=== PATIENT | female | born 1930 | race Caucasian/White ===

== ENCOUNTER 2019-03-22 11:34 | Inpatient (IN) ==
[2019-03-22 12:01] LABS: BASO# 0.02 X1000 (0.0-0.2); BASO% 0.1 % (0.0-0.8); EOS# 0.02 X1000 (0.0-0.7); EOS% 0.1 % (0.0-10.0); HEMATOCRIT 43.2 % (37.0-47.0); HEMOGLOBIN 14.7 g/dL (12.0-16.0); IMM GRAN# 0.05 X1000 (0.0-0.04); IMM GRAN% 0.4 % (0.0-0.5); LYMPH# 1.74 X1000 (1.2-3.4); LYMPH% 12.2 % (20.5-51.1); MCH 29.6 PG (27-31); MCV 86.9 FL (81-99); MONO# 0.78 X1000 (0.11-0.59); MONO% 5.5 % (1.7-9.3); MPV 10.4 FL (7.4-10.4); NEUT# 11.63 X1000 (1.4-6.5); NEUT% 81.7 % (42.2-75.2); PLT 245 X1000 (130-400); RBC 4.97 XMIL (4.2-5.4); RDW 13.8 % (11.5-14.5); WBC 14.24 X1000 (4.8-10.8)
[2019-03-22 12:32] LABS: CALCIUM 9.3 mg/dL (8.8-10.2); POTASSIUM 4.1 mmol/L (3.5-5.1)
[2019-03-22 12:39] LABS: INR 0.94; PROTIME 13.1 Seconds (11.0-16.0)
[2019-03-22 12:40] LABS: PTT 28.9 Seconds (22.3-41.8)
--- NOTE | 2019-03-22 12:40 | Diag Imaging Result Doc PS360 ---
EXAM: CT HEAD W/O CONTRAST HISTORY: weak TECHNIQUE: CT head without contrast. COMPARISON: None. FINDINGS: No parenchymal hemorrhage. No epidural or subdural hematoma. No subarachnoid hemorrhage. There is atrophy with chronic microvascular ischemic changes. No mass identified on this noncontrasted exam. No hydrocephalus. No sinus opacification. IMPRESSION: 1.No hemorrhage 2.Atrophy with chronic microvascular ischemic changes This exam was performed using automated exposure control, adjustment of mA or kV according to patient size, and/or use of iterative reconstruction technique. Electronically signed by Scooby Bonilla 03/22/2019 12:38 PM
--- NOTE | 2019-03-22 12:55 | Diag Imaging Result Doc PS360 ---
EXAM: CHEST-PORTABLE HISTORY: weak TECHNIQUE: Chest single view COMPARISON: 10/25/2017 FINDINGS: Poor inspiratory effort. The heart is borderline mildly prominent. Mild central vascular distention. No consolidation. No pleural effusions identified. IMPRESSION: Mildly prominent heart with mild pulmonary edema. Electronically signed by Scooby Bonilla 03/22/2019 12:53 PM
[2019-03-22 13:33] LABS: BILIRUBIN URINE NEGATIVE (NEGATIVE); BLOOD URINE 1+ (NEGATIVE); CLARITY SLIGHTLY CLOUDY (CLEAR); COLOR YELLOW; GLUCOSE URINE NEGATIVE (NEGATIVE); KETONE URINE NEGATIVE (NEGATIVE); LEUKOCYTES URINE TRACE (NEGATIVE); NITRITE URINE NEGATIVE (NEGATIVE); PROTEIN URINE NEGATIVE (NEGATIVE); URINE BACTERIA 4+ /HFP; URINE CAST NONE SEEN /LPF; URINE CRYSTAL NONE SEEN /HPF; URINE EPITHELIAL CELLS <10 /HPF (<10); URINE RBC <10 /HPF (<10); URINE SOURCE CATH; URINE YEAST NONE SEEN /HPF; UROBILINOGEN URINE NORMAL
[2019-03-22 14:37] LABS: CK INDEX 0.8 (0.0-2.5); CK-MB 3.48 ng/mL (0.0-5.0)
--- NOTE | 2019-03-22 15:03 | EKG Report ---
Test Performed on : 03/22/2019 12:04:48 PM Test Reason : numbness Blood Pressure : / mmHG Vent. Rate : 096 BPM Atrial Rate : 096 BPM P-R Int : 128 ms QRS Dur : 084 ms QT Int : 362 ms P-R-T Axes : 016 -12 048 degrees QTc Int : 457 ms Sinus rhythm. with premature atrial complexes. Possible Left atrial enlargement Left ventricular hypertrophy Cannot rule out Septal infarct , age undetermined Abnormal ECG No previous ECGs available Unconfirmed Result
[2019-03-22] MEDS ORDERED: NS 1,000 ML IV ONE (15:29)
[2019-03-22] MEDS: LEVAQUIN 500 MG in NS 100 ML IV SCH (15:47)
[2019-03-22] MEDS ORDERED: ZOFRAN IV PRN (16:00)
[2019-03-22] MEDS ORDERED: TYLENOL PO PRN (16:00)
--- NOTE | 2019-03-22 16:22 | HISTORY AND PHYSICAL ---
PRIMARY CARE PROVIDER: Dr. Neil. CHIEF COMPLAINT: Leg numbness. HISTORY OF PRESENT ILLNESS: Ms. Lanza is an 88-year-old female who carries a past medical history of hypertension, hypothyroidism, and congestive heart failure. She has frequent UTIs over the past 2 years. She was brought to the ED secondary to having bilateral lower extremity weakness and numbness. She states that she sat herself on the floor. She did not have a fall. She had an appointment with her PCP yesterday, and was set up for a neurology consult secondary to the bilateral lower extremity numbness. In the ED, she was found to have a white count of 14, and a urinalysis with 4+ bacteria. After speaking with the daughter at the bedside, she stated she has had these similar symptoms before when she has had a urinary tract infection. After treatment with antibiotics and fluids, she showed great improvement, which is where she feels that the bilateral leg numbness and weakness is coming from. She did have a head CT that does not show anything acute. She is awake, alert, and oriented, and answers all questions appropriately. She follows commands and moves all extremities. Her leg numbness is now completely resolved. She denies any headache, fever, chills, cough, or productive sputum. Per daughter, she does stay short of breath at home but does not wear any home O2. No history of COPD, but she has not been any more short of breath than her usual. No GI complaints. No complaints, but daughter reports that she does wear a Depends. We will admit her to the medical floor and initiate her on IV fluids at a low rate, given her heart failure history, she does appear to be clinically dry. We will initiate her on IV antibiotics for her urinary tract infection to see if she has improvement. Per patient and daughter reports, she has had improvement since being brought to the ER. Her leg numbness is completely resolved at this time. We will also order PT and OT in the morning. If she relapses with no improvement, we will transfer her to [facility] for specialty care. PAST MEDICAL HISTORY: 1. Hypertension. 2. Hypothyroidism. 3. Frequent UTIs over the past 2 years. PAST SURGICAL HISTORY: Denies. SOCIAL HISTORY: She lives with family. No alcohol, tobacco, or illicit drug use. She does use a walker. ALLERGIES: No known drug allergies. HOME MEDICATIONS: Have not been reconciled. REVIEW OF SYSTEMS: A 10 point review of systems is completely negative except for those as mentioned in HPI. PHYSICAL EXAMINATION: VITAL SIGNS: Temperature is 98.2 degrees, heart rate 93, respirations 16, blood pressure 172/69, and O2 was 88% on room air. She is anywhere from 95 to 98 percent on nasal cannula. She is lying on the stretcher in no acute distress. HEENT: Atraumatic, normocephalic. PERRL. NECK: Supple. Trachea midline. CARDIOVASCULAR: S1 and S2 appreciated. No murmurs, gallops, or rubs noted. RESPIRATORY: Lung sounds clear bilaterally. No increased work of breathing. GASTROINTESTINAL: Soft, nontender, and nondistended. Positive bowel sounds in 4 quadrants. EXTREMITIES: No clubbing. No cyanosis. Bilateral pedal pulses were palpable. NEUROLOGIC: Patient is sitting up in the bed, awake, alert, and oriented to name, date of , year and place. All numbness has subsided in her legs. She is able to move them in all directions with ease. No other focal deficits. DIAGNOSTIC DATA: Head CT shows no hemorrhage, atrophy with chronic microvascular ischemic changes. Chest x-ray mildly prominent heart with mild pulmonary edema. EKG sinus rhythm with PACs at 96 beats per minute. LABORATORY DATA: White count 14, hemoglobin and hematocrit 14 and 43, platelet count is 245,000. Sodium 138, potassium 4.1, BUN 16, creatinine 1.0. Blood glucose was 114, CK 242. Troponin less than 0.010. Plasma lactate 1.1. Urinalysis 4+ bacteria, 10 to 20 microscopic WBCs, trace WBCs, and 1+ blood. ASSESSMENT AND PLAN: 1. Urinary tract infection. In the past they have grown out E. Coli, susceptible to Levaquin. We will initiate IV Levaquin and low rate IV fluids. 2. Complaints of bilateral lower extremity weakness and numbness that has resolved since coming to the ER with her daughter at bedside. This has happened to her in the past with UTIs. She did follow up with her PCP yesterday, and has a consult to see a neurologist. If her symptoms return and do not improve, we will transfer her to [facility] for specialty care with Neurology. We will consult PT and OT, fall precautions and Neuro checks. 3. Hypertension. Continue home medications when reconciled. 4. Hypothyroidism. Will continue Synthroid when reconciled. 5. Further recommendations to follow physician evaluation, laboratory and diagnostic data. Dictated by ESTEFANIA Desir for Chris Hess MD cc: MD Yulia Rice CRNP [facility]
[2019-03-22] MEDS: XALATAN 0.005% OPH SOLN BOTH EYES SCH (20:14)
--- NOTE | 2019-03-22 22:01 | HISTORY AND PHYSICAL ---
ADDENDUM: Patient seen and examined by myself. Full note dictated and discussed with nurse practitioner. Patient presented to the hospital with bilateral lower extremity weakness and numbness. She has done this before with a UTI. It does appears as though she has UTI currently. Currently, she is awake, alert. She is in no distress. We will admit her to the hospital. We will place her on antibiotics, IV fluids and we will follow. cc: Chris Hess MD
[2019-03-23] MEDS: SYNTHROID PO SCH (06:10)
[2019-03-23] MEDS: PRILOSEC PO SCH (06:10)
[2019-03-23 06:56] LABS: BASO# 0.02 X1000 (0.0-0.2); BASO% 0.2 % (0.0-0.8); EOS# 0.09 X1000 (0.0-0.7); EOS% 0.8 % (0.0-10.0); HEMATOCRIT 38.3 % (37.0-47.0); HEMOGLOBIN 12.4 g/dL (12.0-16.0); IMM GRAN# 0.01 X1000 (0.0-0.04); IMM GRAN% 0.1 % (0.0-0.5); LYMPH# 1.81 X1000 (1.2-3.4); LYMPH% 16.9 % (20.5-51.1); MCHC 32.4 g/dL (33-37); MCV 89.7 FL (81-99); MONO# 0.67 X1000 (0.11-0.59); MONO% 6.3 % (1.7-9.3); MPV 10.4 FL (7.4-10.4); NEUT# 8.12 X1000 (1.4-6.5); NEUT% 75.7 % (42.2-75.2); PLT 174 X1000 (130-400); RBC 4.27 XMIL (4.2-5.4); RDW 13.8 % (11.5-14.5); WBC 10.72 X1000 (4.8-10.8)
[2019-03-23 07:16] LABS: ALBUMIN 3.2 g/dL (3.5-5.0); CALCIUM 8.5 mg/dL (8.8-10.2); TOTAL BILIRUBIN 0.8 mg/dL (0.20-1.00); TOTAL PROTEIN 6.9 g/dL (6.3-8.3)
[2019-03-23 07:41] LABS: TSH 2.38 uIUmL (0.27-4.20)
[2019-03-23 07:45] LABS: CK INDEX 0.9 (0.0-2.5); CK-MB 3.05 ng/mL (0.0-5.0)
[2019-03-23] MEDS: IMDUR PO SCH (08:48)
[2019-03-23] MEDS: MYRBETRIQ E.R. PO SCH (08:48)
[2019-03-23] MEDS: LEVAQUIN 500 MG in NS 100 ML IV SCH (15:24)
[2019-03-23] MEDS: COZAAR PO SCH (15:25)
--- NOTE | 2019-03-23 20:07 | PROGRESS NOTE ---
DATE: 03/23/2019 SUBJECTIVE: The patient notes that she is feeling much better. Denies any current issues. Notes that her cough is improving. Notes that her lower extremity weakness is improving, but has not been out of bed currently. OBJECTIVE: Temperature 98.2 degrees, pulse 71, respiratory 18, BP 150/44.General: The patient is very pleasant. She is in no distress. HEENT: Normocephalic. Neck supple. CV: Regular rate. Chest clear. Abdomen soft. Extremities: Moves all extremities. ASSESSMENT: 1. Urinary tract infection. 2. Generalized weakness secondary to her urinary tract infection. 3. Hypertension. 4. Hypothyroidism. 5. Leukocytosis, improving. PLAN: We will continue the patient in the hospital. Continue antibiotics until culture and sensitivity return. Further orders as needed. cc: Chris Hess MD
[2019-03-23] MEDS: XALATAN 0.005% OPH SOLN BOTH EYES SCH (20:47)
[2019-03-24] MEDS: SYNTHROID PO SCH (06:19)
[2019-03-24] MEDS: PRILOSEC PO SCH (06:19)
[2019-03-24] MEDS: ZOSYN 3.375 GM in NS 50 ML IV SCH ×3 (09:13→20:06)
[2019-03-24] MEDS: IMDUR PO SCH (09:13)
[2019-03-24] MEDS: MYRBETRIQ E.R. PO SCH (09:13)
[2019-03-24] MEDS: COZAAR PO SCH (09:13)
[2019-03-24] MEDS ORDERED: LEVAQUIN 500 MG/D5W 500 MG/100 ML IVPB IV SCH (16:00)
[2019-03-24] MEDS: XALATAN 0.005% OPH SOLN BOTH EYES SCH (20:06)
--- NOTE | 2019-03-24 21:53 | PROGRESS NOTE ---
DATE: 03/24/2019 SUBJECTIVE: The patient notes that overall she is feeling okay. She denies any fevers or chills. Denies any new symptoms although states she really has not been out of bed since getting to the hospital. PHYSICAL EXAMINATION: Vital Signs: Temperature 98 degrees, pulse 79, respiratory 18, BP 127/44. General: Patient is awake, very pleasant. She is in no respiratory distress. Neck: Supple. Cardiovascular: Regular rate. Chest: Clear. Abdomen: Soft. Extremities: Moves all extremities. ASSESSMENT: 1. Generalized weakness. 2. Escherichia coli urinary tract infection. 3. Leukocytosis, resolved. 4. Hypertension. 5. Hypothyroidism. PLAN: We will continue patient in the hospital. We will change her antibiotic as her E coli is resistant to Levaquin. We will place her on Zosyn IV. We will continue physical therapy and we will follow. Hopefully home over the next 1 or 2 days. cc: Chris Hess MD
[2019-03-25] MEDS: ZOSYN 3.375 GM in NS 50 ML IV SCH ×4 (02:09→21:24)
[2019-03-25] MEDS: SYNTHROID PO SCH (06:11)
[2019-03-25] MEDS: PRILOSEC PO SCH (06:11)
[2019-03-25] MEDS: MYRBETRIQ E.R. PO SCH (10:01)
[2019-03-25] MEDS: COZAAR PO SCH (10:01)
[2019-03-25] MEDS: IMDUR PO SCH (10:01)
--- NOTE | 2019-03-25 19:45 | PROGRESS NOTE ---
DATE: 03/25/2019 SUBJECTIVE: Patient notes that she is starting to feel better, feeling a little bit stronger. Still very weak, has to have help to get out of bed. Denies any fevers or chills. PHYSICAL EXAMINATION: Vital Signs: Temp 99, pulse 84, respiratory 18, BP 144/51. General: Patient is very pleasant. She is in no respiratory distress. HEENT: Normocephalic. Neck: Supple. Cardiovascular: Regular rate. No murmurs. Chest: Clear, nonlabored. Abdomen: Soft. Extremities: Moves all extremities except for generalized weakness. ASSESSMENT: 1. E coli urinary tract infection. Currently is on Zosyn. Is resistant to Levaquin. 2. Leukocytosis, resolved. 3. Adult generalized weakness with adult failure to thrive. 4. Hypertension. 5. Hypothyroidism. PLAN: We will continue patient in the hospital. We will continue physical therapy when it is made available. Hopefully, she can discharge home over the next few days. cc: Chris Hess MD
[2019-03-25] MEDS: XALATAN 0.005% OPH SOLN BOTH EYES SCH (21:24)
[2019-03-26] MEDS: ZOSYN 3.375 GM in NS 50 ML IV SCH ×2 (03:30→08:15)
[2019-03-26] MEDS: SYNTHROID PO SCH (06:19)
[2019-03-26] MEDS: PRILOSEC PO SCH (06:19)
[2019-03-26] MEDS: COZAAR PO SCH (08:15)
[2019-03-26] MEDS: MYRBETRIQ E.R. PO SCH (08:15)
[2019-03-26] MEDS: IMDUR PO SCH (08:15)
[2019-03-26] MEDS ORDERED: CYANOCOBALAMIN IM ONE ×2 (12:20→14:00)
--- NOTE | 2019-03-26 13:02 | PROGRESS NOTE ---
DATE: 03/26/2019 SUBJECTIVE: Patient has no major complaints. She is sitting up in bed eating lunch. OBJECTIVE: Vitals: Blood pressure 190/84, heart rate of 81, respiratory rate of 18, temperature 97.3 degrees, 96% on 2 L. Cardiovascular: Regular rate and rhythm. Pulmonary: Bilateral breath sounds, clear to auscultation. GI: Soft, nontender, nondistended. Bowel sounds are positive. PROBLEM LIST: 1. Escherichia coli urinary tract infection. She is currently on Zosyn. It is resistant to Levaquin, but it is sensitive to cefazolin, so I am just going to switch her to Keflex. 2. Weakness. We will continue to monitor. 3. Hypertension does not appear to be well controlled, although generally speaking it has been okay. She had one very high level before, so we will continue to monitor before we will bump up her medications. 4. Generalized weakness. We will continue PT. Plan for rehab transfer tomorrow if stable. Continue to monitor. I would continue her Keflex for another 7 days at discharge. cc: Jack Warren MD
[2019-03-26] MEDS: KEFLEX PO SCH (20:16)
[2019-03-26] MEDS: XALATAN 0.005% OPH SOLN BOTH EYES SCH (20:16)
[2019-03-26] MEDS ORDERED: LIPITOR PO SCH (21:00)
[2019-03-27] MEDS: PRILOSEC PO SCH (06:10)
[2019-03-27] MEDS: SYNTHROID PO SCH (06:11)
--- NOTE | 2019-03-27 08:24 | PROVIDER DOCUMENTATION ---
This chart was entered by Jannette Sierra Scribe, acting as scribe for Cem Prado MD. HPI-General Adult - General Chief Complaint: Numbness Stated Complaint: Leg Nubness Time Seen by Provider: 03/22/19 11:39 Source: patient, family, EMS Allergies/Adverse Reactions: Patient Allergies Allergy/AdvReac Type Severity Reaction Status Date / Time No Known Allergies Allergy Verified 03/22/19 12:04 Home Medications: Home Medication List Medication Instructions Recorded Confirmed Last Taken Type Isosorbide Mononitrate E.r. [Imdur] 30 mg PO DAILY 11/29/16 03/22/19 03/21/19 09:00 History Levothyroxine [Synthroid] 0.075 mg PO DAILY 11/29/16 03/22/19 03/21/19 09:00 History Omeprazole [Prilosec] 20 mg PO DAILY@0700 11/29/16 03/22/19 03/21/19 09:00 History Calcium 500 mg PO DAILY 11/05/17 03/22/19 03/21/19 09:00 History Mirabegron E.r. [Myrbetriq E.r] 25 mg PO DAILY 11/05/17 03/22/19 03/21/19 09:00 History ATORVAstatin [Lipitor] 1 cap PO DAILY 03/22/19 03/22/19 03/21/19 09:00 History Furosemide [Lasix] 1 cap PO BID PRN 03/22/19 03/22/19 03/22/19 09:00 History Latanoprost 0.005% Oph Soln 1 drp BOTH EYES HS 03/22/19 03/22/19 03/21/19 21:00 History [Xalatan 0.005% Oph Soln] Losartan [Cozaar] 2 cap PO DAILY 03/22/19 03/22/19 03/22/19 History CephALEXIN [Keflex] 500 mg PO Q12HR #14 cap 03/26/19 Unknown Rx Cyanocobalamin [Vitamin B-12] 1,000 microgm PO DAILY tab 03/26/19 Unknown Rx - History of Present Illness -Gen Adult Nature of Presenting Problems: 88 y/o female presents to ED with leg numbness onset 3 days ago. Pt reports she saw PCP yesterday and got a neurology referral for the numbness. Pt states her legs were so numb this morning that she thought she was going to fall down. Pt is alert and oriented. Location of Pain/Injury: reports: lower extremity Pain Radiation: reports: no radiation Quality of Pain: reports: none Severity: reports: mild Onset/Duration: reports: 3 days ago Timing: reports: still present Context/Activities at Onset: reports: none Modifying Factors: improves with: nothing Associated Symptoms: reports: other (leg numbness) Similar Symptoms Previously?: No Recently seen or treated by another doctor?: No Review of Systems - Adult - REVIEW OF SYSTEMS - ADULT Constitutional: denies: chills, fever Eyes: reports: no symptoms reported Ears, Nose, Mouth & Throat: reports: no symptoms reported Cardiovascular: denies: chest pain, palpitations Respiratory: denies: cough, shortness of breath Gastrointestinal: denies: abdominal pain, diarrhea, nausea, vomiting Genitourinary: reports: no symptoms reported Musculoskeletal: denies: back pain, joint pain Integumentary: reports: no symptoms reported Neurological: reports: numbness (legs). denies: dizziness/vertigo, seizure Psychiatric: reports: no symptoms reported Endocrine: reports: no symptoms reported Hematologic/Lymphatic: reports: no symptoms reported Allergic/Immunologic: reports: no symptoms reported All Other Systems: Reviewed and Negative Past History - Adult - PAST MEDICAL HISTORY-ADULT Review of Records: reports: Old Records Reviewed, Nursing Assessment Review, Medications Reviewed Major Childhood Illnesses: reports: denies history Cardiovascular: reports: HTN Respiratory: reports: denies history Gastrointestinal: reports: GERD Obstetrical/Gynecological: reports: denies history Genitourinary: reports: denies history Musculoskeletal: reports: denies history Neurological: reports: denies history Endocrine/Immune: reports: Diabetes, thyroid disorder (hypothyroid) Other Conditions: reports: denies history, cataract/glaucoma - PRIOR SURGERIES/PROCEDURES Surgical/Procedure History: reports: hysterectomy, other (cataract removal) - IMMUNIZATION STATUS Childhood Immunizations: See Nurse Assessment Flu Vaccine: See Nurse Assessment - FAMILY HISTORY Family History: reviewed, not pertinent - SOCIAL HISTORY Smoking: quit greater than 1 year Substance Use: none/never Alcohol Use Frequency: never Living Situation: family Physical Exam-General - PHYSICAL EXAM-ADULT Initial Vital Signs Reviewed: Yes - CONSTITUTIONAL General Appearance: appears well, alert, no apparent distress - EYES Eyes: PERRL/EOMI, pink conjunctivae - HEAD, EARS, NOSE, MOUTH & THROAT HENMT: normocephalic/atraumatic, moist mucous membranes, normal ENT inspection - NECK Neck: non-tender, full range of motion - RESPIRATORY Respiratory: chest non-tender, lungs clear, normal breath sounds - CARDIOVASCULAR Cardiovascular: normal peripheral pulses, regular rate, rhythm - GASTROINTESTINAL (ABDOMEN) Abdominal Exam: normal bowel sounds, non tender, soft - MUSCULOSKELETAL Back Exam: normal inspection, no CVA tenderness Extremity: normal range of motion, non-tender, normal gait, other (bilateral patellar DTR 1+) - SKIN Integumentary: normal color, warm/dry - NEUROLOGIC Neurologic: 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 negative: sensory deficit, other (clonus) - PSYCHIATRIC Psych/Mental Status: normal mood/affect, normal thought content, normal thought process Progress - PLAN OF CARE/RESULTS Progress/Plan/Lab Results: Vital Signs - 8 hr 03/22/19 11:34 Temperature 98.2 F Pulse Rate 93 H Respiratory Rate 16 Blood Pressure 172/69 O2 Sat by Pulse Oximetry 88 L Orders Category Date Time Status Nursing- Obtain EKG once Care 03/22/19 11:49 Active CHEST-PORTABLE [RAD] Stat Exams 03/22/19 11:[address] HEAD W/O CONTRAST [CT] Stat Exams 03/22/19 11:46 Ordered BMP [BASIC METABOLIC PANEL] [CHEM] Stat Lab 03/22/19 11:50 Ordered CBC WITH ELECTRONIC DIFF [HEME] Stat Lab 03/22/19 11:50 Ordered PROTIME WITH INR [COAG] Stat Lab 03/22/19 11:50 Ordered PTT [COAG] Stat Lab 03/22/19 11:46 Uncollected TROPONIN T Stat Lab 03/22/19 11:[address] W/POSS RFLX CULT [URINALYSIS] Stat Lab 03/22/19 11:46 Uncollected Laboratory Tests 03/22/19 03/22/19 03/22/19 11:50 11:50 11:50 WBC 14.24 H RBC 4.97 Hgb 14.7 Hct 43.2 MCV 86.9 MCH 29.6 MCHC 34.0 RDW Std Deviation 13.8 Plt Count 245 MPV 10.4 Immature Gran % (Auto) 0.4 Neut % (Auto) 81.7 H Lymph % (Auto) 12.2 L [place] % (Auto) 5.5 Eos % (Auto) 0.1 Baso % (Auto) 0.1 Immature Gran # (Auto) 0.05 H Neut # (Auto) 11.63 H Lymph # (Auto) 1.74 [place] # (Auto) 0.78 H Eos # (Auto) 0.02 Baso # (Auto) 0.02 PT 13.1 INR 0.94 PTT (Actin FS) 28.9 Sodium 138 Potassium 4.1 Chloride 97 L Carbon Dioxide 28 Anion Gap 13 BUN 16 Creatinine 1.0 H Estimated GFR/1.73 m2 53 BUN/Creatinine Ratio 16 Glucose 114 H Calculated Osmolality 278 Calcium 9.3 Creatine Kinase Troponin T Plasma Lactate Urine Source Urine Color Urine Clarity Urine pH Ur Specific [place] Urine Protein Urine Ketones Urine Blood Urine Nitrite Urine Bilirubin Urine Urobilinogen Urine Microscopic RBC Urine WBC Urine Microscopic WBC Ur Epithelial Cells Urine Crystals Urine Bacteria Urine Casts Urine Yeast Urine Glucose 03/22/19 03/22/19 03/22/19 11:50 12:48 12:48 WBC RBC Hgb Hct MCV MCH MCHC RDW Std Deviation Plt Count MPV Immature Gran % (Auto) Neut % (Auto) Lymph % (Auto) [place] % (Auto) Eos % (Auto) Baso % (Auto) Immature Gran # (Auto) Neut # (Auto) Lymph # (Auto) [place] # (Auto) Eos # (Auto) Baso # (Auto) PT INR PTT (Actin FS) Sodium Potassium Chloride Carbon Dioxide Anion Gap BUN Creatinine Estimated GFR/1.73 m2 BUN/Creatinine Ratio Glucose Calculated Osmolality Calcium Creatine Kinase 424 H Troponin T < 0.010 Plasma Lactate 1.1 Urine Source Urine Color Urine Clarity Urine pH Ur Specific [place] Urine Protein Urine Ketones Urine Blood Urine Nitrite Urine Bilirubin Urine Urobilinogen Urine Microscopic RBC Urine WBC Urine Microscopic WBC Ur Epithelial Cells Urine Crystals Urine Bacteria Urine Casts Urine Yeast Urine Glucose 03/22/19 12:48 WBC RBC Hgb Hct MCV MCH MCHC RDW Std Deviation Plt Count MPV Immature Gran % (Auto) Neut % (Auto) Lymph % (Auto) [place] % (Auto) Eos % (Auto) Baso % (Auto) Immature Gran # (Auto) Neut # (Auto) Lymph # (Auto) [place] # (Auto) Eos # (Auto) Baso # (Auto) PT INR PTT (Actin FS) Sodium Potassium Chloride Carbon Dioxide Anion Gap BUN Creatinine Estimated GFR/1.73 m2 BUN/Creatinine Ratio Glucose Calculated Osmolality Calcium Creatine Kinase Troponin T Plasma Lactate Urine Source CATH Urine Color YELLOW Urine Clarity SLIGHTLY CLOUDY A Urine pH 7.0 Ur Specific [place] 1.000 Urine Protein NEGATIVE Urine Ketones NEGATIVE Urine Blood 1+ A Urine Nitrite NEGATIVE Urine Bilirubin NEGATIVE Urine Urobilinogen NORMAL Urine Microscopic RBC <10 Urine WBC TRACE A Urine Microscopic WBC 10-20 A Ur Epithelial Cells <10 Urine Crystals NONE SEEN Urine Bacteria 4+ Urine Casts NONE SEEN Urine Yeast NONE SEEN Urine Glucose NEGATIVE Result Diagrams: 03/23/19 05:50 03/23/19 05:50 - EKG 1 Time of EKG reading by physician:: 12:04 EKG Read and Signed by:: Cem Prado EKG Interpretation (*Must complete 3 of following elements*): Abnormal Rate: 96 Rhythm: Sinus w/ premature atrial complexes [place]: normal QRS: LVH, other (possible L atrial enlargement; cannot rule out septal infarct) MA Interval: normal ST Wave: normal - XRAY 1 XRAY Study: Chest Impression: Abnormal (FINDINGS: Poor inspiratory effort. The heart is borderline mildly prominent. Mild central vascular distention. No consolidation. No pleural effusions identified. IMPRESSION: Mildly prominent heart with mild pulmonary edema. Electronically signed by Scooby Bonilla 03/22/2019 12:53 PM) - CT/MRI 1 CT Study: Head Impression: Normal (FINDINGS: No parenchymal hemorrhage. No epidural or subdural hematoma. No subarachnoid hemorrhage. There is atrophy with chronic microvascular ischemic changes. No mass identified on this noncontrasted exam. No hydrocephalus. No sinus opacification. IMPRESSION: 1.No hemorrhage 2.Atrophy with chronic microvascular ischemic changes This exam was performed using automated exposure control, adjustment of mA or kV according to patient size, and/or use of iterative reconstruction technique. Electronically signed by Scooby Bonilla 03/22/2019 12:38 PM) - CONSULTS/PCP/HOSPITALIST Notification #1 *Consult/PCP/Hospitalist*: Dr. Hess Time Discussed: 14:21 Reason/Comments: Weakness Consult Disposition: Admit Departure - Departure Date of Disposition Decision: 03/22/19 Time of Disposition Decision: 14:23 DIAGNOSIS: Weakness Disposition: ADMITTED INPATIENT 09 Certified Medical Emergency: Emergent Condition: Stable - Critical Care Note This patient required my direct & personal management of CC.: No Attestation - Physician/ YUE Attestation Patient care was provided by Advanced Practice Provider:: No The physician spent face to face time with patient:: Yes Advanced Practice Provider documentation review:: Supervising physician onsite and consulted in the evaluation and care of this patient. The physician did have a face to face encounter with the patient. This chart was documented by the indicated scribe, (Jannette Sierar Scribe) and accurately reflects the services I performed and decisions made by me, Cem Prado MD, as attested by the provider's signature.
[2019-03-27] MEDS ORDERED: VITAMIN B-12 PO SCH (09:00)
[2019-03-27] MEDS ORDERED: TUMS PO SCH (09:00)
[2019-03-27] MEDS: MYRBETRIQ E.R. PO SCH (09:57)
[2019-03-27] MEDS: IMDUR PO SCH (09:57)
[2019-03-27] MEDS: COZAAR PO SCH (09:57)
[2019-03-27] MEDS: KEFLEX PO SCH (09:57)
--- NOTE | 2019-03-27 13:10 | DISCHARGE SUMMARY ---
ADMISSION DATE: 03/23/2019 DISCHARGE DATE: 03/27/2019 DISCHARGE DIAGNOSES: 1. Escherichia coli urinary tract infection. 2. Weakness. 3. Hypertension. 4. Hypothyroidism. BRIEF HISTORY: An 88-year-old female history of hypertension, CHF with falls and numbness. She had a white count of 14,000, 4+ bacteria, felt to have UTI. She was somewhat dehydrated on admission. She has had E coli UTIs in the past. They have been susceptible to Levaquin. She had bilateral lower extremity weakness and numbness. She had PT and OT provided. Her micro here showed an E coli that was sensitive to everything but Levaquin for which I think she had been placed on Zosyn. She did progress a little bit with physical therapy. It was not an ESBL, though. It was only resistant to Levaquin. VITAL SIGNS: She was afebrile. Day of discharge: Blood pressure 140/67, heart rate 73, felt stable for discharge. DISCHARGE MEDICATIONS: Calcium 500 daily, Cozaar 100 daily, Imdur 30 daily, Lasix 20 p.r.n., Lipitor 10 daily, Myrbetriq 25 daily, Prilosec 20 daily, Synthroid 75 mcg daily, latanoprost 0.005% 2-1/2 drops both eyes, Keflex 500 q.12 for 7 days, vitamin B12 1000 mcg daily. Her B12 level was low. We did give her a dose of that. It was 170. Folate, TSH were normal. DISCHARGE CONDITION: Discharge condition is stable. She is going to follow up for rehab at discharge. cc: MD Dao Luque MD
[2019-03-27 16:04] VITALS: BP 143/57
== END 2019-03-27 16:54 | DRG 690 ==
LOC: P.MEDSURG 11:34 → P.ED 11:34 → SUATTDRO 03-23 13:13
PROVIDERS: ATTEND Internal Medicine
CPT/HCPCS: 70450; 71010; 71045; 80048; 80053; 81001; 82550; 82553; 82607; 82746; 83605; 84443; 84484; 85025; 85610; 85730; 87040; 87077; 87088; 87186; 93005; 94761; 96374; 97163; 97166; 97530; 97535; 99285; A9270; J1956; J2543; J3420; J7030

== ENCOUNTER 2019-06-15 11:43 | Inpatient (IN) ==
--- NOTE | 2019-06-15 12:08 | EKG Report ---
Test Performed on : 06/15/2019 12:00:52 PM Test Reason : SYNCOPE Blood Pressure : / mmHG Vent. Rate : 064 BPM Atrial Rate : 064 BPM P-R Int : 122 ms QRS Dur : 088 ms QT Int : 424 ms P-R-T Axes : 020 -05 021 degrees QTc Int : 437 ms Normal sinus rhythm. Normal ECG When compared with ECG of 09-JUN-2019 15:53, (Unconfirmed) Criteria for Septal infarct are no longer present Unconfirmed Result
[2019-06-15 12:43] LABS: BASO# 0.03 X1000 (0.0-0.2); BASO% 0.5 % (0.0-0.8); EOS# 0.17 X1000 (0.0-0.7); EOS% 2.6 % (0.0-10.0); HEMATOCRIT 41.6 % (37.0-47.0); HEMOGLOBIN 13.8 g/dL (12.0-16.0); IMM GRAN# 0.02 X1000 (0.0-0.04); IMM GRAN% 0.3 % (0.0-0.5); LYMPH# 2.45 X1000 (1.2-3.4); MCH 29.4 PG (27-31); MCHC 33.2 g/dL (33-37); MCV 88.5 FL (81-99); MONO# 0.56 X1000 (0.11-0.59); MONO% 8.7 % (1.7-9.3); MPV 10.3 FL (7.4-10.4); NEUT# 3.21 X1000 (1.4-6.5); NEUT% 49.9 % (42.2-75.2); PLT 211 X1000 (130-400); RDW 13.5 % (11.5-14.5); WBC 6.44 X1000 (4.8-10.8)
--- NOTE | 2019-06-15 12:56 | Diag Imaging Result Doc PS360 ---
EXAM: CHEST-2 VIEWS HISTORY: SYNCOPE TECHNIQUE: AP and Lateral chest x-ray COMPARISON: 06/09/2019, 11/04/2017 FINDINGS: Poor inspiration. There is cardiomegaly and vascular congestion. Interstitial edema versus fibrosis. No focal consolidation. No effusions.. No change from previous studies. IMPRESSION: Unchanged cardiomegaly with mild vascular congestion and interstitial prominence.. Electronically signed by Larissa Iverson 06/15/2019 12:53 PM
[2019-06-15 13:05] LABS: ALBUMIN 4.1 g/dL (3.5-5.0); CALCIUM 9.5 mg/dL (8.8-10.2); CREATININE 1.3 mg/dL (0.5-0.9); POTASSIUM 5.1 mmol/L (3.5-5.1); TOTAL BILIRUBIN 0.3 mg/dL (0.20-1.00); TOTAL PROTEIN 7.8 g/dL (6.3-8.3)
[2019-06-15 13:12] LABS: INR 0.89; PROTIME 12.5 Seconds (11.0-16.0)
[2019-06-15 13:13] LABS: PTT 26.8 Seconds (22.3-41.8)
--- NOTE | 2019-06-15 14:16 | PROVIDER DOCUMENTATION ---
This chart was entered by Latoya Pate Scribe, acting as scribe for Yimi Contreras MD. HPI-General Adult - General Chief Complaint: Return/Recheck Stated Complaint: near syncope Time Seen by Provider: 06/15/19 12:00 Source: patient, family (son), EMS Allergies/Adverse Reactions: Patient Allergies Allergy/AdvReac Type Severity Reaction Status Date / Time No Known Allergies Allergy Verified 03/22/19 12:04 Home Medications: Home Medication List Medication Instructions Recorded Confirmed Last Taken Type Isosorbide Mononitrate E.r. [Imdur] 30 mg PO DAILY 11/29/16 03/22/19 03/21/19 09:00 History Levothyroxine [Synthroid] 0.075 mg PO DAILY 11/29/16 03/22/19 03/21/19 09:00 History Omeprazole [Prilosec] 20 mg PO DAILY@0700 11/29/16 03/22/19 03/21/19 09:00 History Calcium 500 mg PO DAILY 11/05/17 03/22/19 03/21/19 09:00 History Mirabegron E.r. [Myrbetriq E.r] 25 mg PO DAILY 11/05/17 03/22/19 03/21/19 09:00 History ATORVAstatin [Lipitor] 1 cap PO DAILY 03/22/19 03/22/19 03/21/19 09:00 History Furosemide [Lasix] 1 cap PO BID PRN 03/22/19 03/22/19 03/22/19 09:00 History Latanoprost 0.005% Oph Soln 1 drp BOTH EYES HS 03/22/19 03/22/19 03/21/19 21:00 History [Xalatan 0.005% Oph Soln] Losartan [Cozaar] 2 cap PO DAILY 03/22/19 03/22/19 03/22/19 History CephALEXIN [Keflex] 500 mg PO Q12HR #14 cap 03/26/19 Unknown Rx Cyanocobalamin [Vitamin B-12] 1,000 microgm PO DAILY tab 03/26/19 Unknown Rx - History of Present Illness -Gen Adult Nature of Presenting Problems: [id number] presents to ED cc weakness and syncope. Son is at bedside and reports pt was in her wheelchair doing her PT exercises when she just passed out for about 10 minutes. EMS reports pt was in and out in route to hospital and b/p dropped to 80/50. Upon exam pt has no memory of EMS ride. Pt was seen in ED on 06/09/19 for similar symptoms. Pt denies pain. Pt has hx of HTN and DM. Location of Pain/Injury: reports: none Onset/Duration: reports: just prior to arrival Timing: reports: improving Context/Activities at Onset: reports: moderate activity Modifying Factors: improves with: nothing Associated Symptoms: reports: dizziness, syncope Similar Symptoms Previously?: Yes Recently seen or treated by another doctor?: Yes (06/09/19) Review of Systems - Adult - REVIEW OF SYSTEMS - ADULT Constitutional: reports: see antonio TALAMANTES. denies: chills, fever Eyes: reports: no symptoms reported Ears, Nose, Mouth & Throat: reports: no symptoms reported Cardiovascular: reports: see HPI. denies: chest pain, palpitations Respiratory: reports: no symptoms reported Gastrointestinal: reports: no symptoms reported Genitourinary: reports: no symptoms reported Musculoskeletal: reports: no symptoms reported Integumentary: reports: no symptoms reported Neurological: reports: see HPI, syncope Psychiatric: reports: no symptoms reported Endocrine: reports: no symptoms reported Hematologic/Lymphatic: reports: no symptoms reported Allergic/Immunologic: reports: no symptoms reported All Other Systems: Reviewed and Negative Past History - Adult - PAST MEDICAL HISTORY-ADULT Review of Records: reports: Nursing Assessment Review, Medications Reviewed, Social history reviewed & non-contributory. Major Childhood Illnesses: reports: denies history Cardiovascular: reports: HTN Respiratory: reports: denies history Gastrointestinal: reports: GERD Obstetrical/Gynecological: reports: denies history Genitourinary: reports: denies history Musculoskeletal: reports: denies history Neurological: reports: denies history Endocrine/Immune: reports: Diabetes, thyroid disorder (hypothyroid) Other Conditions: reports: cataract/glaucoma - PRIOR SURGERIES/PROCEDURES Surgical/Procedure History: reports: hysterectomy, other (cataract removal) - IMMUNIZATION STATUS Childhood Immunizations: See Nurse Assessment Flu Vaccine: See Nurse Assessment - FAMILY HISTORY Family History: reviewed, not pertinent - SOCIAL HISTORY Smoking: denies Physical Exam-General - PHYSICAL EXAM-ADULT Initial Vital Signs Reviewed: Yes - CONSTITUTIONAL General Appearance: appears well, alert, no apparent distress. negative: anxious, combative - EYES Eyes: PERRL/EOMI, pink conjunctivae. negative: meningismus, pale conjunctivae, photophobia - HEAD, EARS, NOSE, MOUTH & THROAT HENMT: normocephalic/atraumatic, moist mucous membranes, normal ENT inspection. negative: angioedema, dental decay, hearing deficit - NECK Neck: non-tender, full range of motion, supple, normal inspection. negative: C- spine tenderness - RESPIRATORY Respiratory: chest non-tender, lungs clear, normal breath sounds, no pleuratic chest pain, no respiratory distress, no accessory muscle use. negative: crackles, rales, rhonchi, stridor, wheezing - CARDIOVASCULAR Cardiovascular: normal peripheral pulses, regular rate, rhythm, no edema, no gallop, no JVD, no murmur. negative: bradycardia, tachycardia - GASTROINTESTINAL (ABDOMEN) Abdominal Exam: normal bowel sounds, non tender, soft, no organomegaly, no pulsatile mass. negative: distended, guarding, rigid, rebound, tenderness, h ernia, mass - LYMPHATIC Lymphatic: no adenopathy. negative: enlargement, striations, streaking - MUSCULOSKELETAL Back Exam: normal inspection, no CVA tenderness, no vertebral tenderness. negative: ecchymosis, swelling Extremity: normal inspection, no pedal edema, no calf tenderness, normal capillary refill, pelvis stable. negative: erythema - SKIN Integumentary: normal color, normal turgor, warm/dry. 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 negative: facial droop, focal weakness, motor weakness, sensory deficit - PSYCHIATRIC Psych/Mental Status: normal mood/affect, normal thought content, normal thought process, oriented x 3. negative: disoriented x 3, anxious, disheveled, depressed affect Progress - PLAN OF CARE/RESULTS Progress/Plan/Lab Results: Vital Signs - 8 hr 06/15/19 11:50 Temperature 98.2 F Pulse Rate 68 Respiratory Rate 18 Blood Pressure 141/65 O2 Sat by Pulse Oximetry 94 L Laboratory Results - last 24 hr 06/15/19 11:57 POC Glucose 127 H Orders Category Date Time Status Cardiac Monitoring DIRECTED Care 06/15/19 11:57 Active Oxygen Therapy- ED Nursing DIRECTED Care 06/15/19 11:57 Active Saline Loc NOW Care 06/15/19 11:57 Active CHEST-2 VIEWS [RAD] Stat Exams 06/15/19 11:57 Ordered CBC WITH ELECTRONIC DIFF [HEME] Stat Lab 06/15/19 12:03 Ordered CK PROFILE [SP CHEM] Stat Lab 06/15/19 12:03 Ordered COMPREHENSIVE METABOLIC PANEL [CHEM] Stat Lab 06/15/19 12:03 Ordered PRO B-NATRIURETIC PEPTIDE Stat Lab 06/15/19 12:03 Ordered PROTIME WITH INR [COAG] Stat Lab 06/15/19 12:03 Ordered PTT [COAG] Stat Lab 06/15/19 12:03 Ordered TROPONIN T Stat Lab 06/15/19 12:03 Ordered CP/SOB/Palp >45 yrs of Age Stat Oth 06/15/19 11:57 Ordered EKG [EKG] Stat Ther 06/15/19 11:57 Draft Result Diagrams: 06/15/19 12:25 06/15/19 12:25 - EKG 1 Time of EKG reading by physician:: 12:00 EKG Read and Signed by:: Yimi Contreras EKG Interpretation (*Must complete 3 of following elements*): Normal Rate: 64 Rhythm: normal sinus QRS: normal TN Interval: normal - XRAY 1 XRAY: Bilateral XRAY Study: Chest Impression: See EMR Report (IMPRESSION: Unchanged cardiomegaly with mild vascular congestion and interstitial prominence.. Electronically signed by Larissa Iverson 06/15/2019 12:53 PM 06/15/19 1253) - CONSULTS/PCP/HOSPITALIST Notification #1 *Consult/PCP/Hospitalist*: Dr. Henning Time Discussed: 13:07 Consult Disposition: Admit (will admit pt) Departure - Departure Date of Disposition Decision: 06/15/19 Time of Disposition Decision: 14:14 DIAGNOSIS: Near syncope Disposition: ADMITTED INPATIENT 09 Certified Medical Emergency: Emergent Condition: Stable Additional Freetext Instructions: ED Follow Up Instructions: You have been treated by a care provider in the Emergency Department. These instructions are being provided to you so you can have an understanding of how to care for yourself upon discharge. Upon discharge from the Emergency Department, you are responsible for making arrangements for follow-up care by a physician of your choice. Take all prescribed medications as directed. Return to the Emergency Department immediately for any new or worsening symptoms. You may call the Physician Referral phone number at [phone] to obtain a list of Physicians who are taking new patients. - Critical Care Note This patient required my direct & personal management of CC.: No Attestation - Physician/ YUE Attestation Patient care was provided by Advanced Practice Provider:: No The physician spent face to face time with patient:: Yes Advanced Practice Provider documentation review:: Supervising physician onsite and consulted in the evaluation and care of this patient. The physician did have a face to face encounter with the patient. This chart was documented by the indicated scribe, (Latoya Pate Scribe) and accurately reflects the services I performed and decisions made by me, Yimi Contreras MD, as attested by the provider's signature.
[2019-06-15] MEDS ORDERED: TYLENOL PO PRN (15:22)
[2019-06-15] MEDS ORDERED: ZOFRAN IV PRN (15:22)
[2019-06-15] MEDS ORDERED: DUONEB (A & A) INH PRN (15:54)
--- NOTE | 2019-06-15 18:29 | HISTORY AND PHYSICAL ---
PRIMARY CARE PHYSICIAN: ESTEFANIA Brasher CHIEF COMPLAINT: Syncope. HISTORY OF PRESENT ILLNESS: Ms. Lanza is an 88-year-old female who presented to the ER today with a past medical history of hypertension, hypothyroidism, home O2 use of 2 L nasal cannula, chronic UTIs, chronic kidney disease and heart failure. The patient states that she was at home with her son and she stood up to transfer from her wheelchair to her recliner and when she was sitting in her recliner she had a syncopal episode. The son who was right there with her stated that it took him a minute to get her to wake up. The patient states that she was here on 06/09/2019 for the same thing. The patient states that she has had some dizziness and that after her syncopal episode she was a little confused. The patient denies any dizziness at this time. The patient states that she is wheelchair bound, but however, she is able to stand up and pivot to from her wheelchair to her bed or her recliner. The patient states she has been on home O2 of 2 L. She wears this at night, however, sometimes during the day she does have to wear this oxygen also. The patient denies any cough or congestion, any fevers or chills. She denies any headache. The patient is awake, alert, and oriented. Speech is clear. She does not have any facial droop noted. She is able to move all extremities well. There were no deficits noted. She denies any pain. She denies any dysuria or hematuria, urgency, or frequency. She denies any problems with her bowels. She denies any chest pain or abdominal pain. PAST MEDICAL HISTORY: Hypertension, hypothyroidism, home O2 use of 2 L nasal cannula, frequent UTIs, heart failure, chronic kidney disease. PAST SURGICAL HISTORY: Cataract removal to the left eye. FAMILY HISTORY: Noncontributory. SOCIAL HISTORY: She lives with her son and her [id number]. She denies any alcohol, tobacco, or illicit drug use. The patient states she is wheelchair dependent. ALLERGIES: No known drug allergies. MEDICATIONS: 1. Atorvastatin 1 tablet p.o. daily. 2. Calcium 500 mg p.o. daily. 3. Vitamin B12 1000 mcg p.o. daily. 4. Lasix 20 mg p.o. b.i.d. p.r.n. 5. Imdur 30 mg p.o. daily. 6. Xalatan eye drops 1 drop both eyes at bedtime. 7. Synthroid 0.075 mg p.o. daily. 8. Cozaar p.o. daily 2 capsule capsules p.o. daily. 9. Myrbetriq 25 mg p.o. daily. 10. Prilosec 20 mg p.o. daily. LABORATORY AND DIAGNOSTICS: Sodium 143, potassium 5.1, chloride 100, carbon dioxide 34, anion gap 9, BUN 25, creatinine 1.3. Estimated GFR is 39, glucose is 120, calcium is 9.5, total bilirubin is 0.30, AST is 17, ALT is 14, alkaline phosphatase is 81. Creatine kinase is 37. Troponin is less than 0.01. ProBNP is 866. TSH is 3.10. White blood cell count is 6.44, red blood cell count is 4.70, hemoglobin is 13.8, hematocrit is 41.6, platelet count is 211,000. PT is 12.5, INR is 0.89, PTT is 26.8. Chest x-ray shows cardiomegaly with mild mid vascular congestion and interstitial prominence. EKG shows normal sinus rhythm. REVIEW OF SYSTEMS: A 10 point review of systems has been obtained and negative except for stated above in HPI. PHYSICAL EXAMINATION: VITAL SIGNS: Temperature 98.2 degrees, pulse rate 68, respiratory rate 18, blood pressure 141/65, O2 saturations 94% on room air. Weight is 160 pounds. Height is 5 feet. GENERAL: This is an 88-year-old female. She is lying in the ER stretcher. She is in no acute distress. She is well nourished and well developed. HEENT: Atraumatic, normocephalic. Pupils equal, round, reactive. Extraocular movements intact. Sclerae anicteric. Mucous membranes are moist. NECK: Supple. No lymphadenopathy. Trachea is midline. No JVD. No thyromegaly. No bruits. CARDIOVASCULAR: Regular rate and rhythm. No murmurs, gallops, or rubs appreciated. RESPIRATORY: Lung sounds are clear with equal chest excursion. Respirations are nonlabored with no accessory muscle usage. GASTROINTESTINAL: Abdomen is soft, nontender, nondistended. Bowel sounds present x4. NEUROLOGIC: Cranial nerves 2-12 are intact. The patient is awake, alert, and oriented. She is able to follow all commands appropriately. No deficits noted. MUSCULOSKELETAL: Full distal strength noted. No abnormalities. No deformities. EXTREMITIES: No clubbing, no cyanosis, no edema. DP and PT pulses are present and palpable. SKIN: Warm, dry, and intact. No rashes or bruises. No diaphoresis. ASSESSMENT AND PLAN: 1. Syncopal episode. We will admit this patient to the medical floor. We will do serial CK and troponins. We will repeat labs and chest x-ray in the morning. We are going to do a urinalysis on this patient. We will restart her home medications once they are verified in the computer. 2. Chronic kidney disease. Patient's creatinine is 1.2 today. When looking back at prior labs, her last creatinine was 1.4. This seems to be our normal range at this time. 3. Hypertension. Once the home medication reconciliation has been performed, I will restart her home blood pressure medications. 4. Heart failure. The patient's proBNP is elevated at 866. She does not have any edema at this time. She is on nasal cannula at 2 L, but she wears a nasal cannula at home. She states she does not have a cough at the present time. Lung sounds are clear. We will repeat her chest x- ray in the morning. We will restart her home Lasix once her home medication reconciliation has been performed. 5. Hypothyroidism. The patient is on Synthroid at home. We will restart that dose whenever her home medication reconciliation is performed. 6. Gastrointestinal prophylaxis. I will place this patient on Prilosec daily. 7. Deep venous thrombosis prophylaxis. I will place this patient on SCDs. We will admit her to the medical floor. We are going to repeat her labs and chest x-ray in the morning. We are going to restart her home medications. We are going to do a carotid ultrasound. We are going to trend her CK and troponins. I started her on a diet. All other further treatment pending hospital course and lab data. Dictated by ESTEFANIA Ayon for Chris Hess MD cc: MD Yulia Rice CRNP [facility]
--- NOTE | 2019-06-15 18:52 | HISTORY AND PHYSICAL ---
ADDENDUM: Patient seen and examined by myself. Full note dictated and discussed with nurse practitioner. Patient presented to the hospital after having a syncopal episode. Apparently, she was in the ER approximately a week ago for similar symptoms, and has had no previous issues and did not have any issues during the past week until today. She was at home. I believe she was actually sitting down. Her son noted that she was slumped over and was not answering questions. PLAN: We will admit her to the hospital, rule out [place]. We will evaluate for syncope. We will check carotids, echo, and follow her blood pressures. Further orders as needed. cc: Chris Hess MD
--- NOTE | 2019-06-15 19:50 | Extremity Venous Study ---
EXAM: Carotid Ultrasound 06/15/2019 HISTORY: syncope TECHNIQUE: Carotid Doppler ultrasound. COMMENT: There is atherosclerotic plaque formation in both internal carotid arteries and in the distal left common carotid and bulb. There is elevated peak systolic velocity in the distal internal carotid on the left at 145 cm/s. There is antegrade flow in both vertebral arteries. IMPRESSION: Bilateral atherosclerotic change with stenosis in the left internal carotid artery at 40-59%. Electronically signed by Guy 06/15/2019 7:48 PM
[2019-06-15 21:38] LABS: BILIRUBIN URINE NEGATIVE (NEGATIVE); BLOOD URINE 1+ (NEGATIVE); CLARITY VERY CLOUDY (CLEAR); COLOR YELLOW; GLUCOSE URINE NEGATIVE (NEGATIVE); KETONE URINE NEGATIVE (NEGATIVE); LEUKOCYTES URINE 2+ (NEGATIVE); NITRITE URINE POSITIVE (NEGATIVE); PROTEIN URINE TRACE mg/dL (NEGATIVE); UROBILINOGEN URINE NORMAL
[2019-06-15 21:40] LABS: URINE SOURCE CATH
[2019-06-15 21:43] LABS: URINE BACTERIA 4+ /HFP; URINE CAST NONE SEEN /LPF; URINE CRYSTAL NONE SEEN /HPF; URINE EPITHELIAL CELLS <10 /HPF (<10); URINE RBC <10 /HPF (<10); URINE WBC TNTC /HPF (<10); URINE YEAST NONE SEEN /HPF
[2019-06-16 05:44] LABS: BASO# 0.03 X1000 (0.0-0.2); BASO% 0.6 % (0.0-0.8); EOS# 0.22 X1000 (0.0-0.7); EOS% 4.1 % (0.0-10.0); HEMOGLOBIN 12.6 g/dL (12.0-16.0); IMM GRAN# 0.01 X1000 (0.0-0.04); IMM GRAN% 0.2 % (0.0-0.5); LYMPH% 44.2 % (20.5-51.1); MCH 29.5 PG (27-31); MCHC 33.2 g/dL (33-37); MONO# 0.64 X1000 (0.11-0.59); MONO% 11.8 % (1.7-9.3); MPV 10.4 FL (7.4-10.4); NEUT# 2.13 X1000 (1.4-6.5); NEUT% 39.1 % (42.2-75.2); PLT 183 X1000 (130-400); RBC 4.27 XMIL (4.2-5.4); RDW 13.4 % (11.5-14.5); WBC 5.43 X1000 (4.8-10.8)
[2019-06-16 06:05] LABS: CHOLESTEROL 169 mg/dL (0-200); HDL 42 mg/dL (45-65); LDL 111 mg/dL; TRIGLYCERIDES 79 mg/dL (35-135); VLDL 16 mg/dL
[2019-06-16 06:12] LABS: ALBUMIN 3.4 g/dL (3.5-5.0); CALCIUM 8.9 mg/dL (8.8-10.2); CREATININE 1.2 mg/dL (0.5-0.9); MAGNESIUM 1.7 mg/dL (1.5-2.7); POTASSIUM 4.4 mmol/L (3.5-5.1); TOTAL BILIRUBIN 0.3 mg/dL (0.20-1.00); TOTAL PROTEIN 7.1 g/dL (6.3-8.3)
[2019-06-16 06:30] LABS: HEMOGLOBIN A1C 5.9 % (4.8-6.0)
[2019-06-16] MEDS ORDERED: PRILOSEC PO SCH (07:00)
[2019-06-16] MEDS ORDERED: LASIX PO PRN (07:29)
--- NOTE | 2019-06-16 07:30 | Diag Imaging Result Doc PS360 ---
EXAM: CHEST-PORTABLE 06/16/2019 HISTORY: dyspnea TECHNIQUE: AP portable at 0704 COMMENT: The inspiration is less optimal than on 06/15/2019. Considering this there has been no significant change. IMPRESSION: Stable chest. Electronically signed by Guy 06/16/2019 7:27 AM
[2019-06-16] MEDS ORDERED: LIPITOR PO SCH (09:00)
[2019-06-16] MEDS: ROCEPHIN 1 GM in NS 50 ML IV SCH (09:29)
[2019-06-16] MEDS: IMDUR PO SCH (09:29)
[2019-06-16] MEDS: TUMS PO SCH (09:29)
[2019-06-16] MEDS: COZAAR PO SCH (09:29)
[2019-06-16] MEDS: SYNTHROID PO SCH (09:30)
[2019-06-16] MEDS: VITAMIN B-12 PO SCH (09:30)
--- NOTE | 2019-06-16 17:30 | PROGRESS NOTE ---
DATE: 06/16/2019 SUBJECTIVE: Patient notes that she is feeling okay. Denies any fevers or chills. PHYSICAL: Temperature 97.9 degrees, pulse 65, respiratory 20, BP 149/42.General: Patient is an elderly female who is in no respiratory distress. Very pleasant to talk with. HEENT: Normocephalic. Neck: Supple. Cardiovascular: Regular rate. No murmurs. Chest: Clear, nonlabored. Abdomen: Soft, nondistended. Extremities: Moves all extremities. ASSESSMENT: 1. Syncope. 2. Urinary tract infection currently on Rocephin. 3. Chronic kidney disease. 4. Congestive heart failure diastolic, stable. 5. Hypothyroidism. PLAN: Will continue patient the hospital, continue physical therapy. Antibiotics until final culture and sensitivities have been obtained. cc: Chris Hess MD
[2019-06-16] MEDS: XALATAN 0.005% OPH SOLN BOTH EYES SCH (21:41)
[2019-06-16] MEDS: LIPITOR PO SCH (21:41)
[2019-06-17] MEDS: PRILOSEC PO SCH (07:07)
[2019-06-17] MEDS: SYNTHROID PO SCH (07:08)
[2019-06-17] MEDS: COZAAR PO SCH (08:50)
[2019-06-17] MEDS: ROCEPHIN 1 GM in NS 50 ML IV SCH (08:50)
[2019-06-17] MEDS: TUMS PO SCH (08:51)
[2019-06-17] MEDS: IMDUR PO SCH (08:51)
[2019-06-17] MEDS: VITAMIN B-12 PO SCH (08:51)
--- NOTE | 2019-06-17 10:17 | PROGRESS NOTE ---
DATE: 06/17/2019 SUBJECTIVE: Patient notes that she is feeling better but has not been out of bed. Denies any fevers or chills. PHYSICAL EXAMINATION: Temperature: Temperature 97.6, pulse 75, respiratory rate 18, BP 136/53. General: Patient is in no distress. HEENT: Normocephalic. Neck: Supple. Cardiovascular: Regular rate. Chest: Clear. Abdomen: Soft. Extremities: Moves all extremities. ASSESSMENT: 1. Urinary tract infection. Urine culture is currently pending. 2. Syncope. 3. Chronic kidney disease. 4. Hypertension. 5. Congestive heart failure. 6. Hypothyroidism. PLAN: We will continue patient in the hospital. Continue physical therapy. We will adjust her antibiotics once we get a culture and sensitivity. Further orders as needed. cc: Chris Hess MD
[2019-06-17] MEDS: LIPITOR PO SCH (22:17)
[2019-06-17] MEDS: XALATAN 0.005% OPH SOLN BOTH EYES SCH (22:17)
[2019-06-18] MEDS: SYNTHROID PO SCH ×2 (05:50→06:18)
[2019-06-18] MEDS: PRILOSEC PO SCH ×2 (05:50→06:17)
[2019-06-18] MEDS: ROCEPHIN 1 GM in NS 50 ML IV SCH (08:07)
[2019-06-18] MEDS: TUMS PO SCH (08:07)
[2019-06-18] MEDS: VITAMIN B-12 PO SCH (08:07)
[2019-06-18] MEDS: IMDUR PO SCH (08:08)
[2019-06-18] MEDS: COZAAR PO SCH (08:08)
--- NOTE | 2019-06-18 18:51 | PROGRESS NOTE ---
DATE: 06/18/2019 SUBJECTIVE: The patient has no complaints. Notes that she is feeling okay and wants to go home, but states she has not been out of bed without assistance. PHYSICAL EXAMINATION: Vital Signs: Temperature 97.6 degrees, pulse 75, respiratory rate 18, BP 136/53. General: Patient is very pleasant, no distress. HEENT: Normocephalic. Neck: Supple. Cardiovascular: Regular rate. Chest: Clear. Abdomen: Soft. Extremities: Moves all extremities, although with generalized weakness. Neurologic: No focal changes. ASSESSMENT: 1. Adult failure to thrive with generalized weakness. 2. Urinary tract infection. Urine culture is still pending. 3. Chronic renal disease, stable. 4. Hypertension. PLAN: Will continue patient in the hospital, continue physical therapy. I expect that she will need rehab as she is unable to get out of bed without assistance. cc: Chris Hess MD
[2019-06-18] MEDS: XALATAN 0.005% OPH SOLN BOTH EYES SCH (20:49)
[2019-06-18] MEDS: LIPITOR PO SCH (20:49)
[2019-06-19] MEDS: PRILOSEC PO SCH (06:16)
[2019-06-19] MEDS: SYNTHROID PO SCH (06:16)
[2019-06-19] MEDS: COZAAR PO SCH (08:14)
[2019-06-19] MEDS: IMDUR PO SCH (08:14)
[2019-06-19] MEDS: VITAMIN B-12 PO SCH (08:15)
[2019-06-19] MEDS: TUMS PO SCH (08:15)
[2019-06-19] MEDS ORDERED: SEPTRA DS PO SCH (09:00)
--- NOTE | 2019-06-19 12:09 | DISCHARGE SUMMARY ---
ADMISSION DATE: 06/15/2019 DISCHARGE DATE: 06/19/2019 PRIMARY CARE PROVIDER: ESTEFANIA Brasher ADMISSION DIAGNOSES: 1. Syncopal episode. 2. Chronic kidney disease. 3. Hypertension. 4. Heart failure. 5. Hypothyroidism. DISCHARGE DIAGNOSES: 1. Adult failure to thrive, with generalized weakness. 2. Chronic renal disease, stable. 3. Hypertension. 4. Escherichia coli urinary tract infection. SUMMARY OF FINDINGS: This is an 88-year-old female who presented from home with her son, and while she was standing up to transfer from her wheelchair to her recliner, she had a syncopal episode. The son stated that it took him a minute to get her to wake up. She had been here on 06/09/2019 for the same issue. The patient states that she had had some dizziness and felt a little confused. She is wheelchair-bound; however, she is able to stand up and pivot from her wheelchair to her bed or her recliner. She has been on home O2 at 2 L that she wears at night and sometimes during the day. She was admitted. We did a chest x-ray that showed unchanged cardiomegaly with mild cardiovascular congestion and interstitial prominence on 06/15/2019. We did a carotid Doppler on 06/15/2019 that showed bilateral atherosclerotic change with stenosis in the left internal carotid artery at 40% to 59%. Repeat chest x-ray on 06/16/2019 showed a stable chest. She has been on a diabetic diet. She was placed on Bactrim DS 1 p.o. b.i.d. for her E coli UTI and will continue that for a total of 7 days, and it is now felt that she can safely be discharged to rehabilitation. DISCHARGE MEDICATIONS: Septra DS 1 p.o. b.i.d. x7 days. Synthroid 0.075 mg p.o. daily. Imdur 30 mg p.o. daily. Prilosec 20 mg p.o. daily. Myrbetriq 25 mg p.o. daily. Calcium 500 mg p.o. daily. Lasix 1 p.o. b.i.d. p.r.n. Xalatan 0.005% ophthalmic solution 1 drop to both eyes at bedtime. Cozaar 2 capsules p.o. daily. Lipitor 10 mg p.o. daily. Vitamin B12 1000 mcg p.o. daily. FOLLOW-UP: She will need to follow up with her primary care physician once her rehabilitation stay is complete, and an appointment will be made at the time of her discharge from rehabilitation. COORDINATION TIME: A 35-minute discharge. Dictated by ESTEFANIA Leon for Chris Hess MD cc: ESTEFANIA Leon MD Lori Henry, CRNP
[2019-06-19 15:34] VITALS: BP 140/56
--- NOTE | 2019-06-19 19:36 | DISCHARGE SUMMARY ---
ADMISSION DATE: 06/15/2019 DISCHARGE DATE: 06/19/2019 DISCHARGE ADDENDUM: The patient seen and examined by myself. Full note dictated and discussed with nurse practitioner. The patient is a very pleasant 88-year-old female who presented to the hospital and subsequently diagnosed with Escherichia coli urinary tract infection sensitive to Bactrim. She has tolerated p.o. antibiotics well. She does have chronic kidney disease plus heart failure and hypothyroidism. Thankfully, she remains stable although she is very weak and unable to assist in her care. Therefore, we will discharge her to rehab. cc: Chris Hess MD
== END 2019-06-19 15:39 | DRG 312 ==
LOC: P.ED 11:43 → P.MEDSURG 16:12
PROVIDERS: ATTEND Family Medicine